=== PATIENT | female | born 1990 | race Caucasian/White ===

== ENCOUNTER 2023-10-02 22:54 | Inpatient (IN) ==
[2023-10-02] MEDS ORDERED: Lidocaine 1% VIAL 10 MG/ML 30 ML VIAL INJ PRN (23:34)
[2023-10-02] MEDS ORDERED: Promethazine INJ(RESTRICTED) 25 MG/ML 1 ml VIAL IV PRN (23:34)
[2023-10-03 00:15] LABS: ABS Basophils 0.1 10^3/uL (0.0-0.1); ABS Eosinophils 0.2 10^3/uL (0.0-0.5); ABS Lymphocytes 2.2 10^3/uL (1.0-4.8); ABS Monocytes 1.2 10^3/uL (0.0-0.9); ABS Neutrophils 8.9 10^3/uL (1.5-7.6); ABS Nucleated RBC 0.03 10^3/ul; Eosinophil % 1.4 %; Hematocrit 36.9 % (35-45); Hemoglobin 12.7 g/dL (11.5-14.3); Lymphocyte % 17.7 %; Mean Corpuscular Hemoglobin 30.9 pg (27-33); Mean Corpuscular Hgb Conc 34.4 g/dL (31-36); Mean Corpuscular Volume 89.9 fL (80-97); Mean Platelet Volume 7.9 fL (7.5-11.2); Nucleated Red Blood Cells % 0.3 %/100WBC (0.0-0.8); Platelet Count 228 10^3/uL (150-450); Red Blood Count 4.11 10^6/uL (3.63-4.92); Red Cell Distribution Width 14.5 % (12-17); White Blood Count 12.5 10^3/uL (3.8-11.8)
[2023-10-03 01:26] LABS: Urine Benzodiazepine Screen None Detected (None Detect); Urine Opiates Screen None Detected (None Detect)
[2023-10-03] MEDS: Lactated Ringers 1000 ml BAG 1,000 ML IV SCH (01:45)
[2023-10-03] MEDS ORDERED: Glycerin ADULT 2.4 gm SUPP PR PRN (03:57)
[2023-10-03] MEDS ORDERED: Lactated Ringers 1000 ml BAG 1,000 ML IV SCH (04:00)
[2023-10-03] MEDS: Witch Hazel PAD JAR TOPICAL PRN (04:12)
[2023-10-03] MEDS: Dibucaine 1% OINT 28.35 GM TUBE PR PRN (04:13)
[2023-10-03] MEDS: Buffered Lidocaine 1% SYRIN 1 ml INTRADERM ONE (17:21)
[2023-10-03] MEDS: Lactated Ringers 1000 ml BAG 1,000 ML IV ONE (17:21)
[2023-10-03] MEDS: Oxytocin in LR 20,000 MILLI.UNIT/1,000 ML BAG IV ONE (17:21)
[2023-10-03] MEDS: Oxytocin in LR 20,000 MILLI.UNIT/1,000 ML BAG IV SCH (18:17)
[2023-10-04 06:42] LABS: ABS Basophils 0.2 10^3/uL (0.0-0.1); ABS Eosinophils 0.1 10^3/uL (0.0-0.5); ABS Lymphocytes 2.5 10^3/uL (1.0-4.8); ABS Monocytes 0.9 10^3/uL (0.0-0.9); ABS Neutrophils 10.7 10^3/uL (1.5-7.6); Eosinophil % 0.9 %; Hematocrit 31.8 % (35-45); Hemoglobin 10.6 g/dL (11.5-14.3); Lymphocyte % 17.1 %; Mean Corpuscular Hemoglobin 29.9 pg (27-33); Mean Corpuscular Hgb Conc 33.4 g/dL (31-36); Mean Corpuscular Volume 89.4 fL (80-97); Mean Platelet Volume 7.8 fL (7.5-11.2); Platelet Count 205 10^3/uL (150-450); Red Blood Count 3.55 10^6/uL (3.63-4.92); Red Cell Distribution Width 14.1 % (12-17); White Blood Count 14.4 10^3/uL (3.8-11.8)
[2023-10-04] MEDS: Measles, Mumps,Rubella VACC 0.5 ML/VIAL SUBCUT ONE (09:19)
[2023-10-04 10:31] VITALS: BP 110/68
== END 2023-10-04 11:57 | disposition home or self-care (01) | DRG 560 ==
LOC: MCHOBOUT 22:54 → MCHOB 23:39
PROVIDERS: ADMIT Registered Nurse; ATTEND Registered Nurse